=== PATIENT | male | born 1945 | race Caucasian/White ===

== ENCOUNTER 2017-01-09 08:14 | Emergency (ER) | payer BC, MEDICARE ==
--- NOTE | 2017-01-12 16:46 | ER ---
ADMIT: 01/09/2017 RM/LOC: ER [facility] MR#: [id number] [facility] [address] [place] [id number] PHILIP CHAMORRO [address] [place] [address] Emergency Room Report SEX: M AGE: 71 : 1945 DATE: 01/09/2017 ADDENDUM: A 71-year-old white male with history of lung cancer, left lobectomy, COPD. Continues to smoke. Coming in with more shortness of breath. We did give him 20 of Decadron and DuoNeb. CBC, chemistry is essentially negative. His white count was 9. BNP is up, but that could be from his chronic disease. Initial chest x-ray, questionable or something of the right lower lobe. We did a CT scan again is still questionable whether that is lesion infiltrate recurrence. I spoke Dr. Sebastian. At this time, we are just going to treat him as a COPD exacerbation, which he does have. He was a little confused, so we did get a CT of his head as well, which was negative of his head. He has been started on a pain pump and newer medications. So that might make him a little sleepy and little confused. Romulo will see him on Monday at 11:00 this week. CONDITION ON DISCHARGE: Fair. Chucky Cardoso MD/ chanelle JOB #: [id number] CC: Chucky Cardoso MD, Attending Physician Marquita Sebastian MD, Family Physician
== END 2017-01-09 12:25 | disposition home or self-care (01) ==
LOC: ER 08:14
DX: J44.1 Chronic obstructive pulmonary disease with (acute) exacerbation (principal); R41.0 Disorientation, unspecified; I10 Essential (primary) hypertension; F17.210 Nicotine dependence, cigarettes, uncomplicated; Z85.118 Personal history of other malignant neoplasm of bronchus and lung; Z90.2 Acquired absence of lung [part of]; Z90.49 Acquired absence of other specified parts of digestive tract; Z88.6 Allergy status to analgesic agent; Z79.899 Other long term (current) drug therapy